=== PATIENT | male | born 1950 | race Caucasian/White ===

== ENCOUNTER 2022-10-31 15:20 | Outpatient (RCR) | payer OTHER, MEDICAID, SELFPAY ==
[2022-10-31 16:28] LABS: Creatinine* 2.3 mg/dL (0.5-1.5); Estimated Glomerular Filt Rate 29 ml/min
== END 2023-04-29 23:59 | disposition home or self-care (01) ==
LOC: CCIC 15:20
PROVIDERS: Visit Provider Internal Medicine
DX: C67.9 Malignant neoplasm of bladder, unspecified (principal); R31.0 Gross hematuria
CPT/HCPCS: 36415; 36591; 82565; 87086; 87186

== ENCOUNTER 2022-10-31 15:35 | Outpatient (CLI) | payer OTHER, MEDICAID, SELFPAY | END 2022-10-31 15:36 | disposition home or self-care (01) | LOC: MRI 15:36 | PROVIDERS: Visit Provider Internal Medicine | DX: C67.9 Malignant neoplasm of bladder, unspecified (principal) | CPT/HCPCS: 72197; A9575 ==

== ENCOUNTER 2022-11-28 11:07 | Outpatient (CLI) | payer OTHER, MEDICAID, SELFPAY ==
[2022-11-28 11:30] LABS: Appearance Urine Clear (Clear); Bilirubin Urine Negative (Negative); Blood Urine 3+ (Negative); Color Urine Yellow (Yellow); Glucose Urine Negative (Negative); Ketones Urine Negative (Negative); Leukocyte Esterase Urine 3+ (Negative); Nitrite Urine Negative (Negative); Protein Urine 2+ (Negative); Specific Gravity Urine 1.015 (1.000-1.030); Urobilinogen Urine 0.2 (0.2-1.0)
[2022-11-28 11:51] LABS: Bacteria Urine Few; RBC Urine 50-100 (0-2); Squamous Epithelial Cell Urine Few (None-Few); WBC Urine 50-100 (0-5)
== END 2022-11-28 11:08 | disposition home or self-care (01) ==
LOC: LAB 11:11
PROVIDERS: Referring Provider Physician Assistant; Visit Provider Internal Medicine
DX: C67.9 Malignant neoplasm of bladder, unspecified (principal)
CPT/HCPCS: 81001; 87086; 87186